=== PATIENT | female | born 1965 | race Two or more races ===

== ENCOUNTER 2018-12-22 18:28 | Inpatient (IN) | payer BC ==
[~2018-12-22] VITALS: Ht 162.6 cm; Wt 75.0 kg
[2018-12-22 19:32] LABS: Basophils # (auto) 0.1 uL; Basophils % (auto) 1.1 % (0.0-2.0); Eosinophils # (auto) 0.1 uL; Eosinophils % (auto) 1.9 % (0.0-7.0); Hematocrit 42.6 % (36.0-46.0); Hemoglobin 13.9 g/dL (12.2-16.2); Lymphocytes # (auto) 2.1 uL; Lymphocytes % (auto) 32.4 % (10.0-50.0); Mean Corpuscular Hemoglobin 28.3 pg (28.0-32.0); Mean Corpuscular Hgb Conc. 32.5 g/dL (32.0-36.0); Monocytes # (auto) 0.6 uL; Monocytes % (auto) 8.6 % (0.0-12.0); Neutrophils # (auto) 3.7 uL; Platelet Count (auto) 340 10^3/uL (140-450); Red Blood Cells 4.89 10^6/uL (4.0-5.20); Red Cell Distribution Width 13.1 % (11.8-14.3); White Blood Cell 6.6 10^3/uL (4.4-10.8)
[2018-12-22 19:38] LABS: Albumin 3.5 g/dL (3.4-5.0); Calcium 8.7 mg/dL (8.5-10.1); Potassium 4.1 mmol/L (3.5-5.1)
[2018-12-22 19:47] LABS: Bilirubin, Total 0.2 mg/dL (0.2-1.0); Total Protein 7.5 g/dL (6.4-8.2)
[2018-12-22 20:04] LABS: BUN/Creatinine Ratio 18.9
[2018-12-22] MEDS ORDERED: InsuLIN REG 1unit/0.01ml Soln (100units/ml) IV ONE (23:15)
[2018-12-22] MEDS ORDERED: SODIUM CHLORIDE 0.9% 1,000 ML IV ONE (23:15)
[2018-12-23] MEDS ORDERED: ONDANSETRON HCL 4 MG/2 ML VIAL IV ONE (01:45)
[2018-12-23] MEDS ORDERED: MORPHINE SULF INJ 2 MG/ML SYRINGE 1ML IV ONE (01:45)
[2018-12-23 03:17] LABS: Urine Bacteria MOD /hpf (None Seen); Urine Blood Negative /uL (Negative); Urine Specific Gravity 1.025 (1.001-1.035); Urine WBC 25 /hpf (0 - 5); Urine WBC Clumps PRESENT /hpf (None Seen)
[2018-12-23] MEDS ORDERED: TEMAZEPAM 15 MG CAP PO PRN (05:45)
[2018-12-23] MEDS ORDERED: ONDANSETRON HCL 4 MG/2 ML VIAL IV PRN (05:45)
[2018-12-23] MEDS ORDERED: GABAPENTIN 100 MG CAP PO ONE (05:45)
[2018-12-23] MEDS ORDERED: DEXTROSE (50%) 50ML SYRG IV PRN ×2 (05:45→12:30)
[2018-12-23] MEDS ORDERED: SODIUM CHLORIDE 0.9% 1,000 ML IV SCH (05:45)
[2018-12-23] MEDS ORDERED: ACETAMINOPHEN 325 MG TAB PO PRN (05:45)
[2018-12-23] MEDS: cefTRIAXone 1GM/50ML D5W 50 ML IV SCH (06:07)
[2018-12-23 07:56] LABS: Hematocrit 39.7 % (36.0-46.0); Hemoglobin 13.1 g/dL (12.2-16.2)
[2018-12-23] MEDS: InsuLIN REG 1unit/0.01ml Soln (100units/ml) SC SCH ×4 (08:22→20:00)
[2018-12-23] MEDS: ACCU-CHEK COMFORT CURVE STRIP VI SCH ×4 (08:22→20:00)
[2018-12-23] MEDS: FAMOTIDINE 20 MG TAB PO SCH ×2 (09:20→22:22)
[2018-12-23] MEDS: GABAPENTIN 100 MG CAP PO SCH ×2 (09:20→22:22)
[2018-12-23] MEDS ORDERED: METF-370 PO (11:40)
--- NOTE | 2018-12-23 12:12 | NUR ---
received report from ONDINA ZENG
[2018-12-23] MEDS: SODIUM CHLORIDE 0.9% 1,000 ML IV SCH ×2 (12:45→16:05)
--- NOTE | 2018-12-23 13:00 | NUR ---
MS admit from ER ED [facility] admitted to tele/MS after SBAR received. Patient oriented to Shannon Coyne, primary RN, unit, room, bed, and unit policies regarding patient care and visiting hours. Patient weighed by bedscale and encouraged to call if they need something. All questions and concerns addressed, patient verbalized understanding. Note: pt is awake and alert, no signs of distress or pain at this time.
[2018-12-23 17:00] VITALS: BP 104/67
[2018-12-23 20:00] VITALS: BP 76/54
--- NOTE | 2018-12-23 20:00 | NUR ---
Opening Shift Note Assumed care of patient, awake and alert. No S/S of distress/SOB or pain. Instructed on POC and to call for assist PRN, will continue to monitor for changes Q1hr and PRN. Family at bedside. Bed in low position and call light in reach.
[2018-12-23 22:00] VITALS: BP 76/54
[2018-12-23] MEDS ORDERED: INSULIN LANTUS (GLARGINE) 1 /0.01ml (100units/ml) SC SCH (22:00)
[2018-12-24] MEDS: InsuLIN REG 1unit/0.01ml Soln (100units/ml) SC SCH ×3 (04:00→07:57)
[2018-12-24] MEDS: ACCU-CHEK COMFORT CURVE STRIP VI SCH ×3 (04:00→07:57)
[2018-12-24] MEDS: SODIUM CHLORIDE 0.9% 1,000 ML IV SCH (04:30)
[2018-12-24 06:21] VITALS: BP 116/68
--- NOTE | 2018-12-24 06:54 | NUR ---
Patient resting comfortably. No change in status.
--- NOTE | 2018-12-24 07:30 | NUR ---
Opening Shift Note Assumed care of patient, awake and alert. No S/S of distress/SOB or pain. Instructed on POC and to call for assist PRN, will continue to monitor for changes Q1hr and PRN.
[2018-12-24 07:33] LABS: Calcium 8.3 mg/dL (8.5-10.1)
[2018-12-24 07:35] LABS: BUN/Creatinine Ratio 28.1
[2018-12-24 08:00] VITALS: BP 102/53
[2018-12-24 09:00] VITALS: BP 102/53
[2018-12-24] MEDS: FAMOTIDINE 20 MG TAB PO SCH (09:45)
[2018-12-24] MEDS: cefTRIAXone 1GM/50ML D5W 50 ML IV SCH (09:46)
[2018-12-24] MEDS: GABAPENTIN 100 MG CAP PO SCH (09:46)
--- NOTE | 2018-12-24 11:45 | NUR ---
Discharge instructions given as ordered. Encourage to follow up with Jayla Lantigua as instructed. All questions and concerns addressed. Patient verbalized understanding. IV removed with catheter intact, pressure dressing applied. Patient ambulated to vehicle with all personal belongings, accompanied by family member. No distress noted at time of departure.
== END 2018-12-24 11:45 | disposition home or self-care (01) | DRG 872 ==
LOC: ER 18:28 → OVERFLOW 18:29 → EAST 12-23 13:11
PROVIDERS: ADMIT Nurse Practitioner; ATTEND Family Medicine
DX: A41.9 Sepsis, unspecified organism (principal); N13.6 Pyonephrosis; N83.201 Unspecified ovarian cyst, right side; E11.65 Type 2 diabetes mellitus with hyperglycemia; M54.17 Radiculopathy, lumbosacral region; E86.0 Dehydration; E11.42 Type 2 diabetes mellitus with diabetic polyneuropathy; E66.9 Obesity, unspecified; Z68.28 Body mass index [BMI] 28.0-28.9, adult; M48.061 Spinal stenosis, lumbar region without neurogenic claudication; Z79.4 Long term (current) use of insulin
CPT/HCPCS: 36415; 74176; 76856; 80048; 80053; 81001; 82010; 82962; 83036; 83605; 83880; 85014; 85018; 85025; 87040; 87086; 96361; 96374; 96375; G0378; J0696; J1815; J2405